=== PATIENT | female | born 1930 | race Caucasian/White ===

== ENCOUNTER → 2016-05-29 | Outpatient (CLI) | payer MEDICARE, BC ==
--- NOTE | 2016-05-29 16:30 | MR ---
EXAMINATION TYPE: MR lumbar spine wo con DATE OF EXAM: 05/29/2016 2:18 PM COMPARISON: 03/12/2015 HISTORY: Low back pain CONTRAST: 0 mL intravenous MultiHance. TECHNIQUE: Multiplanar, multisequence images of the lumbar spine were acquired. FINDINGS: L5-S1: No significant disc bulge or disc herniation. No spinal canal stenosis. No foraminal stenosi s. Facet hypertrophy is present.. L4-L5: There is loss of disc height is level. Residual disc bulge has anterior thecal sac contact. Fa cet hypertrophy is present with ligamentum flavum laxity with posterior lateral thecal sac compressio n. This greater on the right than the left. Mild lateral canal narrowing may be present. No AP spinal canal stenosis is present. There is severe right and no significant left foraminal stenosis. L3-L4: Mild residual disc bulge is present with anterior thecal sac flattening. Facet hypertrophy is posterior lateral thecal sac compression from ligamentum flavum laxity is present. The neural foramen are patent. L2-L3: Broad-based disc bulge is present with moderate anterior thecal sac compression. Facet hypertr ophy is present with posterior lateral thecal sac compression. This is contributing to spinal canal s tenosis. The neural foramen are patent. L1-L2: Residual disc bulge is present. Some endplate spurring or posterior wall displacement from the L1 severe compression deformity may be present impinging on the spinal canal is estimated at 3 mm. A P spinal canal stenosis is not present. Facet hypertrophy is posterior lateral thecal sac compression is present. Neural foramen are patent. T12-L1: Disc height is preserved. No spinal canal stenosis or neural foraminal stenosis present. T11-12: No focal disc herniation or significant disc bulge is evident. No spinal canal stenosis or ne ural foraminal stenosis present. T10: There is mild compression deformity. Signal abnormality is present. Metastasis could be consider ed. There is some superior posterior endplate impingement into the spinal canal estimated at 3 mm. No cord contact is evident. No spinal canal stenosis is present. There is been interval additional compression deformity of L1. No increasing posterior wall displacem ent is evident. The T11 compression deformity and signal change is new. Spinal canal stenosis at L3-4 is similar to prior study. IMPRESSION: 1. Spinal canal stenosis secondary to broad-based disc bulge and facet hypertrophy and ligamentum fla vum laxity L3-4. This is similar to February 2015. 2. Compression deformity of L1 is progressive from the comparison study. No increasing posterior wall displacement is evident. The 3 mm displacement is stable. 3. Interval compression deformity of T11 without spinal canal stenosis. Minimal superior wall displac ement may be present. 4. Mild disc bulging present with facet hypertrophy discussed above. 5. 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
== END ==
LOC: RADMRIMAIN 13:32
PROVIDERS: ATTEND Nurse Practitioner Family
DX: M48.06 Spinal stenosis, lumbar region (principal); M99.73 Connective tissue and disc stenosis of intervertebral foramina of lumbar region; M51.26 Other intervertebral disc displacement, lumbar region; M46.86 Other specified inflammatory spondylopathies, lumbar region
CPT/HCPCS: 72148